=== PATIENT | male | born 1935 | race Caucasian/White ===

== ENCOUNTER → 2016-08-30 | Outpatient (CLI) | payer OTHER | LOC: CIMAGING 16:12 | PROVIDERS: ATTEND Internal Medicine | DX: S22.32XA Fracture of one rib, left side, initial encounter for closed fracture (principal) | CPT/HCPCS: 71101-PO ==

== ENCOUNTER 2016-12-16 14:25 | Emergency (ER) | payer OTHER ==
--- NOTE | 2016-12-16 15:21 | EDPHY ---
H & P Stated Complaint: R LEG PAIN AND SWELLING FOR 2 DAYS Time Seen by Provider: 12/16/16 15:20 HPI/ROS: CHIEF COMPLAINT: Right leg pain HISTORY OF PRESENT ILLNESS: The patient presents to the ED with complaints of acute right leg pain. The patient denies history of trauma. He does have a history of peripheral vascular disease and is status post bilateral extremity bypass. The patient is chronically on Plavix and aspirin. The patient denies any fever. The patient has moderate pain associated edema in his right calf and lateral lower leg. The patient denies any chest pain or shortness of breath. The patient denies any recent medication changes. His pain is worsened with movement and palpation. REVIEW OF SYSTEMS: A comprehensive 10 point review of systems is otherwise negative aside from elements mentioned in the history of present illness. Source: Patient Exam Limitations: No limitations - Personal History Current Tetanus Diphtheria and Acellular Pertussis (TDAP): Unsure - Medical/Surgical History Hx Asthma: No Hx Chronic Respiratory Disease: No Hx Diabetes: No Hx Cardiac Disease: Yes Hx Renal Disease: No Hx Cirrhosis: No Hx Alcoholism: No Hx HIV/AIDS: No Hx Splenectomy or Spleen Trauma: No Other PMH: DEMENTIA,PACER,A FIB, BYPASS SURGERY LEGS, HTN - Social History Smoking Status: Former smoker - Physical Exam Exam: General Appearance: Alert, no distress Eyes: Pupils equal and round no pallor or injection ENT, Mouth: Mucous membranes moist Respiratory: There are no retractions, lungs are clear to auscultation Cardiovascular: Regular rate and rhythm Gastrointestinal: Abdomen is soft and nontender, no masses, bowel sounds normal Neurological: A&O, normal motor function, normal sensory exam, normal cranial nerves Skin: Warm and dry, no rashes Musculoskeletal: Neck is supple nontender Extremities: Bilateral lower extremity edema, right greater than left, tenderness to palpation along the right calf and right leg lateral compartment Constitutional: Initial Vital Signs Temperature (C) 36.9 C 12/16/16 14:41 Heart Rate 69 12/16/16 14:41 Respiratory Rate 16 12/16/16 14:41 Blood Pressure 117/80 12/16/16 14:41 O2 Sat (%) 91 L 12/16/16 14:41 O2 Delivery Mode Room Air Allergies/Adverse Reactions: No Known Allergies Allergy (Verified 09/15/15 01:37) Home Medications: Medication Instructions Recorded Memantine HCl [Namenda 10 mg] 10 mg PO BID 10/19/11 PARoxetine HCL [Paxil 20mg (*)] 20 mg PO DAILY 10/19/11 Galantamine HBr [Razadyne 24 mg] 24 mg PO DAILY 10/22/11 Multivitamins [Multivitamin (*)] 1 each PO DAILY 10/22/11 OXcarbazepine [Trileptal 300mg (*)] 300 mg PO HS 10/22/11 amLODIPine BESYLATE [Norvasc 2.5 2.5 mg PO DAILY 06/06/14 mg (*)] Cyanocobalamin [Vitamin B12 (*)] 1,000 mcg PO Q2D 09/15/15 Acetaminophen [Tylenol 325mg (*)] 650 mg PO Q4 PRN #0 tab 09/16/15 Amoxicillin/Clavulanate Pot 875 mg PO BID #4 tab 09/16/15 [Augmentin 875 MG TAB (*)] Metoprolol Tartrate [Lopressor 25 12.5 mg PO BID #14 tab 02/10/16 mg (*)] ASPIRIN 12/16/16 Plavix 12/16/16 Medical Decision Making ED Course/Re-evaluation: Patient presents to the ED for atraumatic right leg pain. The patient is noted to have evidence of tenderness and swelling noted on his physical exam which prompted an emergent ultrasound be performed. The ultrasound demonstrates no evidence of a DVT. The patient is noted to have a palpable dorsalis pedis and posterior tibial pulse in the right leg. The patient will be advised to have a repeat ultrasound in 2 weeks. He should return to the ED for increasing pain, redness, fever or other concerns. Differential Diagnosis: Differential diagnosis considered includes DVT, superficial venous phlebitis, myofascial strain, cellulitis, abscess, arterial insufficiency - Data Points Laboratory Results: Laboratory Results 12/16/16 15:37 12/16/16 15:37 12/16/16 12/16/16 15:37 15:37 WBC 7.05 10^3/uL 10^3/uL (3.80-9.50) RBC 4.66 10^6/uL 10^6/uL (4.40-6.38) Hgb 14.1 g/dL g/dL (13.7-17.5) Hct 43.4 % % (40.0-51.0) MCV 93.1 fL fL (81.5-99.8) MCH 30.3 pg pg (27.9-34.1) MCHC 32.5 g/dL g/dL (32.4-36.7) RDW 14.2 % % (11.5-15.2) Plt Count 194 10^3/uL 10^3/uL (150-400) MPV 11.3 fL fL (8.7-11.7) Neut % (Auto) 62.5 % % (39.3-74.2) Lymph % (Auto) 26.7 % % (15.0-45.0) [place] % (Auto) 8.5 % % (4.5-13.0) Eos % (Auto) 1.3 % % (0.6-7.6) Baso % (Auto) 0.7 % % (0.3-1.7) Nucleat RBC Rel Count 0.0 % % (0.0-0.2) Absolute Neuts (auto) 4.41 10^3/uL 10^3/uL (1.70-6.50) Absolute Lymphs (auto) 1.88 10^3/uL 10^3/uL (1.00-3.00) Absolute Monos (auto) 0.60 10^3/uL 10^3/uL (0.30-0.80) Absolute Eos (auto) 0.09 10^3/uL 10^3/uL (0.03-0.40) Absolute Basos (auto) 0.05 10^3/uL 10^3/uL (0.02-0.10) Absolute Nucleated RBC 0.00 10^3/uL 10^3/uL (0-0.01) Immature Gran % 0.3 % % (0.0-1.1) Immature Gran # 0.02 10^3/uL 10^3/uL (0.00-0.10) Sodium 137 mEq/L mEq/L (134-144) Potassium 4.6 mEq/L mEq/L (3.5-5.2) Chloride 102 mEq/L mEq/L (97-110) Carbon Dioxide 26 mEq/l mEq/l (22-31) Anion Gap 9 mEq/L mEq/L (8-16) BUN 22 mg/dL mg/dL (7-23) Creatinine 1.2 mg/dL mg/dL (0.7-1.3) Estimated GFR 58 Glucose 106 mg/dL H mg/dL (70-100) Calcium 9.5 mg/dL mg/dL (8.5-10.4) Medications Given: Discontinued Medications Dabigatran (Pradaxa) 150 mg PO EDNOW ONE Stop: 12/16/16 18:43 Last Admin: 12/16/16 19:03 Dose: Not Given Departure - Departure Disposition: Home, Routine, Self-Care Clinical Impression: Chronic atrial fibrillation, Leg pain Condition: Fair Instructions: Leg Pain (ED) Additional Instructions: 1. Please schedule a follow-up appointment with your primary care provider. 2. Please continue aspirin and Plavix as prescribed by Dr. Rafa Montoya. 3. I recommend a repeat ultrasound in 2 weeks time for any ongoing symptoms. Referrals: Rafa Montoya MD [Medical Doctor] - As per Instructions Prescriptions: Dabigatran Etexilate Mesylate [Pradaxa] 150 mg PO BID #60 capsule
[2016-12-16 18:06] LABS: % IMMATURE GRANULYOCYTES 0.3 % (0.0-1.1); ABSOLUTE IMMATURE GRANULOCYTES 0.02 10^3/uL (0.00-0.10); ADD DIFF? NO; ADD MORPH? NO; ADD SCAN? NO; ATYPICAL LYMPHOCYTE FLAG 0 (0-99); FRAGMENT RBC FLAG 0 (0-99); HEMATOCRIT 43.4 % (40.0-51.0); HEMOGLOBIN 14.1 g/dL (13.7-17.5); LEFT SHIFT FLG 0 (0-99); LIPEMIA HEMOLYSIS FLAG 80 (0-99); MEAN CELL HEMOGLOBIN 30.3 pg (27.9-34.1); MEAN CELL HEMOGLOBIN CONCENTR. 32.5 g/dL (32.4-36.7); MEAN CELL VOLUME 93.1 fL (81.5-99.8); MEAN PLATELET VOLUME 11.3 fL (8.7-11.7); PLATELET CLUMPS FLAG 0 (0-99); PLATELET COUNT 194 10^3/uL (150-400); RED BLOOD CELL COUNT 4.66 10^6/uL (4.40-6.38); RED CELL DISTRIBUTION WIDTH 14.2 % (11.5-15.2)
[2016-12-16 18:12] LABS: ANION GAP 9 mEq/L (8-16); CALCIUM 9.5 mg/dL (8.5-10.4); CARBON DIOXIDE 26 mEq/l (22-31); CHLORIDE 102 mEq/L (97-110); CREATININE 1.2 mg/dL (0.7-1.3); GLOMERULAR FILTRATION RATE 58; GLUCOSE 106 mg/dL (70-100); POTASSIUM 4.6 mEq/L (3.5-5.2); SODIUM 137 mEq/L (134-144)
[2016-12-16 18:32] VITALS: RESP 18
[2016-12-16] MEDS ORDERED: DABIGATRAN ETEXILATE MESYL 150 MG CAP PO ONE (18:42)
[2016-12-16 19:46] VITALS: BP 145/107; PULSE 69; TEMP 98.8; O2SAT 93
== END 2016-12-16 19:47 | disposition home or self-care (01) ==
DX: M79.604 Pain in right leg (principal); I48.2 Chronic atrial fibrillation; I10 Essential (primary) hypertension; Z79.82 Long term (current) use of aspirin; Z87.891 Personal history of nicotine dependence

== ENCOUNTER → 2017-01-01 | Outpatient (CLI) | payer OTHER | LOC: CIMAGING 11:08 | PROVIDERS: ATTEND Internal Medicine | DX: M79.661 Pain in right lower leg (principal); M71.21 Synovial cyst of popliteal space [Baker], right knee; M17.11 Unilateral primary osteoarthritis, right knee; I72.4 Aneurysm of artery of lower extremity; R60.9 Edema, unspecified | CPT/HCPCS: 73700-PO ==